=== PATIENT | female | born 1975 | race Caucasian/White ===

== ENCOUNTER → 2017-06-25 | Outpatient (CLI) | payer BC ==
[~2017-06-25] MED LIST: ASPIRIN81 M2 PO; ENDOCET 5-3251 EACH PO; PRENATAL TABLE1 EAC3 PO; TOPROL XL100 MG PO; ZANTAC300 MG PO
== END | disposition home or self-care (01) ==
LOC: CDC 15:28
DX: Z01.810 Encounter for preprocedural cardiovascular examination (principal); M54.12 Radiculopathy, cervical region
CPT/HCPCS: 93000